=== PATIENT | male | born 1995 | race Caucasian/White ===

== ENCOUNTER 2019-03-20 14:59 | Emergency (ER) | payer OTHER ==
[~2019-03-20] VITALS: Ht 160 cm; Wt 59.0 kg
[2019-03-20 15:09] VITALS: BP 118/68
--- NOTE | 2019-03-20 15:47 | NUR ---
Patient discharged to home in stable condition. Written and verbal after care instructions given. Patient verbalizes understanding of instruction.
== END 2019-03-20 15:47 | disposition home or self-care (01) ==
LOC: ER 15:00
DX: J02.9 Acute pharyngitis, unspecified (principal)